=== PATIENT | male | born 1950 | race Caucasian/White ===

== ENCOUNTER 2016-12-16 13:16 | Emergency (ER) | payer BC ==
[~2016-12-16] VITALS: Ht 180.3 cm; Wt 106.6 kg
[~2016-12-16 13:16] MED LIST: ESCI10TA10 PO; LEVO25TA4 PO; LEVO50TA5 PO; LEVO750T31 PO; PANT40TA5 PO
--- NOTE | 2016-12-16 14:29 | RAD ---
Chest, 2 views, 12/16/2016: History: Shortness of breath, nonproductive cough Comparison is made to a study from 12/01/2015. The heart size and pulmonary vascularity are normal. The previously seen opacity in the lateral aspect of the right upper lung has largely cleared. No acute pulmonary infiltrate is seen. There is no evidence of pleural fluid. Mild spurring is present in the spine. IMPRESSION: No acute cardiopulmonary abnormality is detected.
[2016-12-16 15:00] LABS: OBC FLU VALID
[2016-12-16] MEDS ORDERED: DEXAMETHASONE SOD PHOS 4 MG/ML VIAL IV ONE (15:15)
[2016-12-16] MEDS ORDERED: BENZONATATE 100 MG CAPSULE. PO ONE (15:15)
[2016-12-16] MEDS ORDERED: BENZ100C PO (16:07)
[2016-12-16 16:25] VITALS: BP 124/68
--- NOTE | 2016-12-16 21:13 | ED.ADGEN ---
Past Medical History Past Medical History: COPD, Hypothyroid, Other Additional Past Medical Histor: STRESS, SLEEP APNEA Past Surgical History: No Surgical History, Other Additional Past Surgical Histo: knee; finger Alcohol Use: None Drug Use: None Adult General Chief Complaint Chief Complaint: SHORTNESS OF BREATH HPI HPI Patient is a 66 year old man, history of COPD, sleep apnea, who presents to the emergency department with complaint of cough and feeling of "something stuck " in his throat. Patient states that he began experiencing worsening cough yesterday along with a foreign body sensation in his throat, denies any fevers, any chills, any nausea or vomiting, any chest pain or shortness of breath. There is some soreness of the throat as well but is primarily a feeling of irritation triggering cough. Cough is nonproductive. Patient states he is previously seen by his primary care provider for his cough, and follows with pulmonary, however the throat sensation is new. Patient has been taking all the medications as directed, he states that he took an out of date albuterol inhaler yesterday and afterwards began experiencing throat symptoms, believes this may have triggered this event. No sick contacts or exposures, did receive this laxation. Review of Systems Review of Systems Constitutional: Denies fever or chills. [] Eyes: Denies change in visual acuity. [] HENT: Denies nasal congestion, Foreign body sensation and soreness of the throat. Respiratory: Denies shortness of breath, complaining of nonproductive cough, and feeling of foreign body sensation in his throat. Cardiovascular: Denies chest pain or edema. [] GI: Denies abdominal pain, nausea, vomiting, bloody stools or diarrhea. [] : Denies dysuria. [] Musculoskeletal: Denies back pain or joint pain. [] Integument: Denies rash. [] Neurologic: Denies headache, focal weakness or sensory changes. [] Endocrine: Denies polyuria or polydipsia. [] Lymphatic: Denies swollen glands. [] Psychiatric: Denies depression or anxiety. [] Current Medications Current Medications Current Medications Medications (Trade) Dose Ordered Sig/Otoniel Start Time Stop Time Status Last Admin Dose Admin Benzonatate (Tessalon Perle) 100 mg 1X ONCE 12/16/16 15:15 12/16/16 15:16 DC 12/16/16 15:56 100 MG Dexamethasone Sodium Phosphate (Decadron) 6 mg 1X ONCE 12/16/16 15:15 12/16/16 15:16 DC 12/16/16 16:27 6 MG Allergies Allergies Allergies Coded Allergies Type Severity Reaction Last Updated Verified No Known Drug Allergies 05/26/14 No Physical Exam Physical Exam Constitutional: Well developed, well nourished, no acute distress, non-toxic appearance. [] HENT: Normocephalic, atraumatic, bilateral external ears normal, oropharynx moist, no oral exudates noted. Oropharynx is mildly injected, patient with swelling of the uvula, no evidence of abscess formation or irregularities, patient has no stridor, clear rhinorrhea noted with mild tenderness of the swelling bilaterally. Post nasal drip identified. Eyes: PERRLA, EOMI, conjunctiva normal, no discharge. [] Neck: Normal range of motion, no tenderness, supple, no stridor. [] Cardiovascular:Heart rate regular rhythm, no murmur, S1, S2, rubs or gallops. [] Lungs & Thorax: Bilateral breath sounds clear to auscultation, no wheezing, rhonchi, rales. No chest wall tenderness or crepitus. [] Abdomen: Bowel sounds normal, soft, no tenderness, no masses, no pulsatile masses. [] Skin: Warm, dry, no erythema, no rash. [] Back: No tenderness, no CVA tenderness. [] Extremities: No tenderness, no cyanosis, no clubbing, ROM intact, no edema. [] Neurologic: Alert and oriented X 3, normal motor function, normal sensory function, no focal deficits noted. [] Psychologic: Affect normal, judgement normal, mood normal. [] Current Patient Data Vital Signs Vital Signs Date Time Temp Pulse Resp B/P Pulse Ox O2 Delivery O2 Flow Rate FiO2 12/16/16 16:25 90 20 124/68 96 Room Air 12/16/16 13:33 97.3 97.3 Lab Values Laboratory Tests Test 12/16/16 13:59 Influenza Type A Antigen Negative (NEGATIVE) Influenza Type B Antigen Negative (NEGATIVE) Radiology/Procedures Radiology/Procedures [] [facility] [address] [place], [place] [id number] IMAGING REPORT Signed PATIENT: TESSIE DUPONT ACCOUNT: [id number] : 1950 LOCATION: ER AGE: 66 SEX: M EXAM STATUS: REG ER ORD. PHYSICIAN: DANTE BYRD DO REASON: cough/CP PROCEDURE: CHEST PA & LATERAL Chest, 2 views, 12/16/2016: History: Shortness of breath, nonproductive cough Comparison is made to a study from 12/01/2015. The heart size and pulmonary vascularity are normal. The previously seen opacity in the lateral aspect of the right upper lung has largely cleared. No acute pulmonary infiltrate is seen. There is no evidence of pleural fluid. Mild spurring is present in the spine. IMPRESSION: No acute cardiopulmonary abnormality is detected. DICTATED and SIGNED BY: JYOTHI TATUM MD DATE: 12/16/16 1424 CC: NINA WYNN; DANTE BYRD DO ~ Course & Med Decision Making Course & Med Decision Making Pertinent Labs and Imaging studies reviewed. (See chart for details) No evidence of lower airspace disease and examination, no stridor, oxygen saturation is 98-100% on room air, respiratory rate of 18, and unlabored.. Uvulitis noted, mild, which I believe is the source of the patient's irritation and feeling a foreign body sensation, also triggering his cough. No other concerning findings identified. X-ray was obtained, which not reveal any evidence acutely concerning 30 findings. He discussed this with patient and family at bedside. Patient's strep test was also negative as was his influenza swab. Discussed the patient's uvulitis is likely consistent with a viral illness , although it may be worsened by his underlying obstructive sleep apnea, there is no evidence of any airway compromise or other concerning findings on examination. Patient received a dose of oral Decadron, and Tessalon Perle in the ED. Discussed concerning symptoms that would prompt return to the emergency department, and importance of follow-up with his primary care provider and pulmonary as scheduled. Patient to return to the ED for concerning symptoms as discussed, to continue medications, and follow-up as needed. Discharged home in stable condition with his family. Dragon Disclaimer Dragon Disclaimer This electronic medical record was generated, in whole or in part, using a voice recognition dictation system. Departure Impression: Primary Impression: Uvulitis Disposition: 01 HOME, SELF-CARE Condition: STABLE Scripts Benzonatate (Tessalon Perle)100 Mg Wpoadws236 Mg PO TID PRN COUGH #14 CAP Prov:DANTE BYRD DO 12/16/16 DANTE BYRD DO Dec 16, 2016 21:13
[2016-12-17 07:10] LABS: NEGATIVE OBC STREP NEG; POSITIVE OBC STREP POS
== END 2016-12-16 16:24 | disposition home or self-care (01) ==
LOC: ER 13:16
DX: K12.2 Cellulitis and abscess of mouth (principal); E03.9 Hypothyroidism, unspecified; J44.9 Chronic obstructive pulmonary disease, unspecified; G47.30 Sleep apnea, unspecified
CPT/HCPCS: 71020; 87804; 87880; 99285; J1100; 87070